=== PATIENT | female | born 1945 | race Caucasian/White ===

== ENCOUNTER 2017-04-22 10:36 | Inpatient (IN) | payer MEDICARE, BC ==
[2017-04-22] MEDS ORDERED: Albuterol/Ipratropium 3.0-0.5 MG/3 ML Neb Soln NEB ONE (11:05)
[2017-04-22] MEDS: Sodium Chloride 0.9% 1,000 ML IV SCH ×4 (11:55→23:08)
[2017-04-22] MEDS ORDERED: LORazepam 1 MG Tab PO PRN (12:00)
[2017-04-22] MEDS ORDERED: Azithromycin 500 MG in Sodium Chloride 0.9% 250 ML IV ONE (12:06)
[2017-04-22] MEDS ORDERED: Sodium Chloride 0.9% 1,000 ML IV SCH (12:15)
[2017-04-22] MEDS ORDERED: Losartan 100 MG Tab PO SCH (13:00)
[2017-04-22] MEDS: Aspirin 81 MG Tab.EC PO SCH (13:13)
[2017-04-22] MEDS: Venlafaxine 37.5 MG Cap.ER PO SCH (13:13)
[2017-04-22] MEDS: Enoxaparin 30 MG/0.3 ML Syringe SUBCUT SCH (13:14)
[2017-04-22] MEDS: Nicotine 14 MG/24 Hr Patch TRDERM SCH (13:15)
--- NOTE | 2017-04-22 13:21 | CR ---
INDICATION: Pneumonia follow-up, COPD, hypoxia. CHEST: AP and lateral views of the chest were obtained 04/22/2017 - no comparisons. Slightly heavy markings are noted at the right costophrenic angle, which may be on the basis of fibrosis or possibly a minimal patchy pneumonia. If old films are available for comparison, they should be of further diagnostic benefit. No consolidating pneumonia or effusion was seen. Flattened diaphragm leaves, hyperaeration, and prominent AP diameter are all compatible with COPD, which appears to be fairly severe - correlate clinically. Calcification is noted in the arch of the aorta. The heart is normal in size and shape. A minimal dextroconvex scoliosis of the thoracic spine is noted. IMPRESSION: 1. No definite acute process, but difficult to exclude a minimal patchy bronchopneumonia at the right costophrenic angle. This could be on the basis of fibrosis and should be correlated clinically. Old films, if available, should be of further diagnostic benefit. Apparently none are available at [place]. 2. COPD. 3. ASD aorta. 4. Mild scoliosis. MTDD
[2017-04-22] MEDS: Albuterol/Ipratropium 3.0-0.5 MG/3 ML Neb Soln NEB PRN ×2 (14:36→20:45)
--- NOTE | 2017-04-22 19:49 | PCM.HP ---
H&P History of Present Illness - General Date of Service: 04/22/17 Admit Problem/Dx: Admission Diagnosis/Problem Admission Diagnosis/Problem COPD with acute lower respiratory infection Source of Information: Patient, Old Records - History of Present Illness Initial Comments - Free Text/Narative: 71-year-old female came in because of cough, shortness of breath and wheezing for 1 week. She is a tobacco abuser and just quit about a week ago. She states that she has a history of COPD. She has hypertension depression anxiety that are stable. Cough was dry nonproductive there is no sugar fever chills [place] chest pain. DENIES ANY PAIN WHEN ASKED AT PRESENT TIME. Pain Score (Numeric/FACES): 0 - Related Data Allergies/Adverse Reactions: Allergies Allergy/AdvReac Type Severity Reaction Status Date / Time clindamycin Allergy Hives Verified 04/22/17 13:17 Penicillins Allergy Hives Verified 04/22/17 13:17 Sulfa (Sulfonamide Allergy Hives Verified 04/22/17 13:17 Antibiotics) Home Medications: Home Meds Aspirin 81 mg PO DAILY 04/22/17 [History] LORazepam 1 mg PO DAILY PRN 04/22/17 [History] Losartan Potassium 100 mg PO DAILY 04/22/17 [History] Venlafaxine HCl [Venlafaxine ER] 37.5 mg PO DAILY 04/22/17 [History] Past Medical History HEENT History: Reports: Impaired Vision Cardiovascular History: Reports: Hypertension Respiratory History: Reports: COPD, SOB [employer] WORK[employer] History: Reports: Psychiatric History: Reports: Anxiety - Infectious Disease History Infectious Disease History: Reports: Chicken Pox, Measles - Past Surgical History Respiratory Surgical History: Reports: None Social & Family History - Family History Family Medical History: Noncontributory - Tobacco Use Smoking Status *Q: Current Every Day Smoker Years of Tobacco use: 30 Packs/Tins Daily: 0 - Caffeine Use Caffeine Use: Reports: Coffee, Energy Drinks, Soda - Recreational Drug Use Recreational Drug Use: No H&P Review of Systems - Review of Systems: Review Of Systems: ROS reveals no pertinent complaints other than HPI. Exam - Exam Exam: See Below - Vital Signs Vital Signs: Last Vital Signs Temp 98.6 F 04/22/17 13:10 Pulse 100 04/22/17 14:53 Resp 26 H 04/22/17 13:10 BP 125/73 02/07/18 13:13 Pulse Ox 93 L 04/22/17 14:53 Weight: 67.784 kg - Exam Quality Assessment: Supplemental Oxygen General: Alert, Oriented, 4 HEENT: PERRLA, Hearing Intact, Mucosa Moist & [place], Nares Patent, Normal Nasal Septum, Posterior Pharynx Clear, Conjunctiva Clear, EOMI, EACs Clear, TMs Clear Neck: Supple, Trachea Midline, 2 Lungs: Normal Respiratory Effort, Decreased Breath Sounds, Rhonchi. No: Rales Cardiovascular: Regular Rate, Regular Rhythm GI/Abdominal Exam: Normal Bowel Sounds, Soft, Non-Tender, No Organomegaly, No Distention, No Abnormal Bruit, No Mass, Pelvis Stable (Female) Exam: Deferred Rectal (Female) Exam: Deferred Back Exam: Normal Inspection, Full Range of Motion, NT Extremities: Normal Inspection, Normal Range of Motion, Non-Tender, No Pedal Edema, Normal Capillary Refill Skin: Warm, Dry, Intact Neurological: Cranial Nerves Intact, Reflexes Equal Bilateral Neuro Extensive - Mental Status: Alert, Oriented x3, Normal Mood/Affect, Normal Cognition Neuro Extensive - Motor, Sensory, Reflexes: CN II-XII Intact, Normal Gait, Normal Reflexes Psychiatric: Alert, Normal Affect, Normal Mood - Patient Data Result Diagrams: 04/22/17 11:28 04/22/17 11:28 *Q Meaningful Use (ADM) - VTE *Q VTE Criteria *Q: - Stroke *Q Stroke Criteria *Q: - AMI *Q AMI Criteria *Q: - Problem List (1) COPD (chronic obstructive pulmonary disease) SNOMED Code(s): 35414566 ICD Code: J44.9 - CHRONIC OBSTRUCTIVE PULMONARY DISEASE, UNSPECIFIED Status : Acute Current Visit: Yes Qualifiers: COPD type: chronic bronchitis (2) HTN (hypertension) SNOMED Code(s): 65618845 ICD Code: I10 - ESSENTIAL (PRIMARY) HYPERTENSION Status: Acute Current Visit: Yes Qualifiers: Hypertension type: essential hypertension Qualified Code(s): I10 - Essential (primary) hypertension (3) Tobacco abuse SNOMED Code(s): 372266042 ICD Code: Z72.0 - TOBACCO USE Status: Chronic Current Visit: Yes (4) Anxiety and depression SNOMED Code(s): 058181229 ICD Code: F41.8 - OTHER SPECIFIED ANXIETY DISORDERS Status: Acute Current Visit: Yes Problem List Initiated/Reviewed/Updated: Yes Orders Last 24hrs: Active Orders 24 hr Category Date Time Status IS (RT) [RT Incentive Spirometry] [RC] ASDIRECTED Care 04/22/17 14:38 Active RT Aerosol Therapy [RC] ASDIRECTED Care 04/22/17 12:05 Active BASIC METABOLIC PANEL,BMP [CHEM] AM Lab 04/23/17 05:11 Ordered CBC WITH AUTO DIFF [HEME] AM Lab 04/23/17 05:11 Ordered PRO B-TYPE NATRIUR PEPT,BNPPRO [CHEM] DAILY Lab 04/23/17 06:11 Ordered Albuterol/Ipratropium [DuoNeb 3.0-0.5 MG/3 ML] Med 04/22/17 12:04 Active 3 ml NEB Q2H PRN Aspirin [Halfprin] Med 04/22/17 13:00 Active 81 mg PO DAILY Azithromycin [Zithromax] 500 mg Med 04/23/17 13:00 Active Sodium Chloride 0.9% [Normal Saline] 250 ml IV Q24H LORazepam [Ativan] Med 04/22/17 12:00 Active 1 mg PO DAILY PRN Losartan [Cozaar] Med 04/22/17 13:00 Active 100 mg PO DAILY Sodium Chloride 0.9% [Normal Saline] 1,000 ml Med 04/22/17 12:15 Active IV ASDIRECTED Venlafaxine [Effexor XR] Med 04/22/17 13:00 Active 37.5 mg PO DAILY methylPREDNISolone Sod Succ [Solu-MEDROL] Med 04/22/17 19:45 Ordered 125 mg IVPUSH Q8H Medication Orders Albuterol/Ipratropium (Duoneb 3.0-0.5 Mg/3 Ml) 3 ml NEB Q2H PRN PRN Reason: Shortness of Breath Last Admin: 04/22/17 14:36 Dose: 3 ml Aspirin (Halfprin) 81 mg PO DAILY [facility] Last Admin: 04/22/17 13:13 Dose: 81 mg Enoxaparin Sodium (Lovenox) 30 mg SUBCUT Q24H [facility] Last Admin: 04/22/17 13:14 Dose: 30 mg Sodium Chloride (Normal Saline) 1,000 mls @ 150 mls/hr IV ASDIRECTED [facility] Last Admin: 04/22/17 16:58 Dose: 150 mls/hr Azithromycin 500 mg/ Sodium (Chloride) 250 mls @ 250 mls/hr IV Q24H [facility] Sodium Chloride (Normal Saline) 1,000 mls @ 999 mls/hr IV ASDIRECTED [facility] Last Infusion: 04/22/17 17:03 Dose: 150 mls/hr Infusion: 04/22/17 12:30 Dose: 150 mls/hr Admin: 04/22/17 11:55 Dose: 999 mls/hr Lorazepam (Ativan) 1 mg PO DAILY PRN PRN Reason: ANXIETY Losartan Potassium (Cozaar) 100 mg PO DAILY [facility] Last Admin: 04/22/17 13:13 Dose: 100 mg Methylprednisolone Sodium Succinate (Solu-Medrol) 125 mg IVPUSH Q8H [facility] Nicotine (Habitrol) 14 mg TRDERM Q24H [facility] Last Admin: 04/22/17 13:15 Dose: 14 mg Venlafaxine HCl (Effexor Xr) 37.5 mg PO DAILY [facility] Last Admin: 04/22/17 13:13 Dose: 37.5 mg Assessment/Plan Comment:: Her chest x-ray is noncontributory. There is some fibrosis perhaps a little infection as well. I agree with the azithromycin, and I will add Solu-Medrol. She is on the Nicotrol patches for smoking cessation and the rest of her home medications have been resumed. I plan to repeat a CBC CMP and BNP in the morning.
[2017-04-22] MEDS: methylPREDNISolone Sodium Succinate 125 MG/2 ML SDV IVPUSH SCH (20:35)
[2017-04-22] MEDS: Melatonin 3 MG Tab PO PRN (20:39)
[2017-04-23] MEDS: methylPREDNISolone Sodium Succinate 125 MG/2 ML SDV IVPUSH SCH ×3 (03:43→19:45)
[2017-04-23] MEDS: Albuterol/Ipratropium 3.0-0.5 MG/3 ML Neb Soln NEB PRN ×4 (07:24→19:45)
--- NOTE | 2017-04-23 09:03 | PCM.PN ---
- General Info Date of Service: 04/23/17 Admission Dx/Problem (Free Text): Admission Diagnosis/Problem Admission Diagnosis/Problem COPD with acute lower respiratory infection Subjective Update: Patient slept well a- received IV fluids overnight ,feels better this morning. Still shortness of breath requiring oxygen supplementation by nasal cannula. Denies any chest pain leg swelling nausea vomiting. No fever has been reported. Functional Status: Reports: Tolerating Diet, Incentive Spirometry - Review of Systems General: Reports: No Symptoms HEENT: Reports: Other (Hoarseness of the voice) Pulmonary: Reports: Shortness of Breath Cardiovascular: Reports: No Symptoms Gastrointestinal: Reports: No Symptoms Genitourinary: Reports: No Symptoms - Patient Data Vitals - Most Recent: Last Vital Signs Temp 98.1 F 04/23/17 07:40 Pulse 88 04/23/17 08:21 Resp 18 04/23/17 07:40 BP 135/74 04/23/17 07:40 Pulse Ox 93 L 04/23/17 08:21 Weight - Most Recent: 67.784 kg I&O - Last 24 Hours: Intake & Output 04/22/17 04/23/17 04/23/17 22:59 06:59 14:59 Intake Total 2199 1447 Balance 2199 1447 Lab Results Last 24 Hours: Laboratory Results - last 24 hr 04/23/17 04/23/17 04/23/17 Range/Units 05:58 05:58 05:58 WBC 1.2 L* (4.5-12.0) X10-3/uL RBC 4.54 (3.23-5.20) x10(6)uL Hgb 13.8 (11.5-15.5) g/dL Hct 40.4 (30.0-51.3) % MCV 89.1 (80-96) fL MCH 30.5 (27.7-33.6) pg MCHC 34.2 (32.2-35.4) g/dL RDW 12.5 (11.5-15.5) % Plt Count 93 L (125-369) X10(3)uL MPV 8.7 (7.4-10.4) fL Add Manual Diff Yes Neutrophils % (Manual) 65 (46-82) % Band Neutrophils % 2 (0-6) % Lymphocytes % (Manual) 27 (13-37) % Monocytes % (Manual) 6 (4-12) % Sodium 139 (135-145) mmol/L Potassium 3.9 (3.5-5.3) mmol/L Chloride 101 D (100-110) mmol/L Carbon Dioxide 30 (21-32) mmol/L BUN 15 D (7-18) mg/dL Creatinine 0.9 (0.55-1.02) mg/dL Est Cr Clr Drug Dosing 50.23 mL/min Estimated GFR (MDRD) > 60 (>60) BUN/Creatinine Ratio 16.7 (9-20) Glucose 210 H D (80-116) mg/dL Calcium 8.3 L (8.6-10.2) mg/dL NT-Pro-B Natriuret Pep 125 (<=125) pg/mL Med Orders - Current: Current Medications Albuterol/Ipratropium (Duoneb 3.0-0.5 Mg/3 Ml) 3 ml NEB Q2H PRN PRN Reason: Shortness of Breath Last Admin: 04/23/17 07:24 Dose: 3 ml Aspirin (Halfprin) 81 mg PO DAILY [facility] Last Admin: 04/22/17 13:13 Dose: 81 mg Enoxaparin Sodium (Lovenox) 30 mg SUBCUT Q24H [facility] Last Admin: 04/22/17 13:14 Dose: 30 mg Azithromycin 500 mg/ Sodium (Chloride) 250 mls @ 250 mls/hr IV Q24H [facility] Lorazepam (Ativan) 1 mg PO DAILY PRN PRN Reason: ANXIETY Losartan Potassium (Cozaar) 100 mg PO DAILY [facility] Last Admin: 04/22/17 13:13 Dose: 100 mg Melatonin (Melatonin) 9 mg PO BEDTIME PRN PRN Reason: Insomnia Last Admin: 04/22/17 20:39 Dose: 9 mg Methylprednisolone Sodium Succinate (Solu-Medrol) 125 mg IVPUSH Q8H [facility] Last Admin: 04/23/17 03:43 Dose: 125 mg Nicotine (Habitrol) 14 mg TRDERM Q24H [facility] Last Admin: 04/22/17 13:15 Dose: 14 mg Venlafaxine HCl (Effexor Xr) 37.5 mg PO DAILY [facility] Last Admin: 04/22/17 13:13 Dose: 37.5 mg Discontinued Medications Albuterol/Ipratropium (Duoneb 3.0-0.5 Mg/3 Ml) 3 ml NEB ONETIME ONE Stop: 04/22/17 11:06 Last Admin: 04/22/17 11:21 Dose: 3 ml Sodium Chloride (Normal Saline) 1,000 mls @ 150 mls/hr IV ASDIRECTED [facility] Last Admin: 04/22/17 23:08 Dose: 150 mls/hr Azithromycin 500 mg/ Sodium (Chloride) 250 mls @ 250 mls/hr IV ONETIME ONE Stop: 04/22/17 13:05 Last Admin: 04/22/17 12:36 Dose: 250 mls/hr Sodium Chloride (Normal Saline) 1,000 mls @ 999 mls/hr IV ASDIRECTED [facility] Last Infusion: 04/22/17 17:03 Dose: Infused - Exam Quality Assessment: Supplemental Oxygen General: Alert, Oriented HEENT: Pupils Equal Neck: Supple Lungs: Clear to Auscultation, Decreased Breath Sounds, Rhonchi, Wheezing Cardiovascular: Regular Rate, Regular Rhythm Psy/Mental Status: Alert, Normal Affect, Normal Mood - Problem List & Annotations (1) COPD (chronic obstructive pulmonary disease) SNOMED Code(s): 02290366 Code(s): J44.9 - CHRONIC OBSTRUCTIVE PULMONARY DISEASE, UNSPECIFIED Status : Acute Current Visit: Yes Qualifiers: COPD type: chronic bronchitis (2) HTN (hypertension) SNOMED Code(s): 85277435 Code(s): I10 - ESSENTIAL (PRIMARY) HYPERTENSION Status: Acute Current Visit: Yes Qualifiers: Hypertension type: essential hypertension Qualified Code(s): I10 - Essential (primary) hypertension (3) Tobacco abuse SNOMED Code(s): 621390376 Code(s): Z72.0 - TOBACCO USE Status: Chronic Current Visit: Yes (4) Anxiety and depression SNOMED Code(s): 313202253 Code(s): F41.8 - OTHER SPECIFIED ANXIETY DISORDERS Status: Chronic Current Visit: Yes (5) Leukopenia SNOMED Code(s): 34840948 Code(s): D72.819 - DECREASED WHITE BLOOD CELL COUNT, UNSPECIFIED Status: Acute Current Visit: Yes Qualifiers: Leukopenia type: neutropenia (6) H/O retinal vein occlusion SNOMED Code(s): 553014358 Code(s): Z86.79 - PERSONAL HISTORY OF OTHER DISEASES OF THE CIRCULATORY SYSTEM Status: Chronic Current Visit: Yes - Problem List Review Problem List Initiated/Reviewed/Updated: Yes - My Orders Last 24 Hours: My Active Orders 04/22/17 14:38 IS (RT) [RT Incentive Spirometry] [RC] ASDIRECTED 04/22/17 20:00 methylPREDNISolone Sod Succ [Solu-MEDROL] 125 mg IVPUSH Q8H 04/22/17 20:02 Melatonin 9 mg PO BEDTIME PRN - Plan Plan:: I will Hep-Lock IV today, will encourage oral fluids. I will obtain a CT of the chest because of persistent hypoxia that is relatively new. Despite possible COPD I wish to rule out pneumonia, PE (especially in light of a previous retinal vein thrombosis),or malignancy. Her leukopenia is likely due to viral infection that started this illness about a week ago with hoarseness to voice, coryza ,sore throat and cough. We'll continue the azithromycin for now,with SVN' s and Solumedrol. I will repeat CBC CMP and troponin in the morning.BC are pending. I will change her status to inpatient care because of continued need for oxygen supplementation
[2017-04-23] MEDS ORDERED: Iopamidol 755 Mg/ML 75 ML Bottle IV ONE (09:41)
[2017-04-23] MEDS: Hydrochlorothiazide/Losartan 12.5-100 mg Tab PO SCH (10:11)
[2017-04-23] MEDS: Aspirin 81 MG Tab.EC PO SCH (10:11)
[2017-04-23] MEDS: Venlafaxine 37.5 MG Cap.ER PO SCH (10:11)
[2017-04-23] MEDS: Nicotine 14 MG/24 Hr Patch TRDERM SCH (12:56)
[2017-04-23] MEDS: Enoxaparin 30 MG/0.3 ML Syringe SUBCUT SCH (12:58)
[2017-04-23] MEDS ORDERED: Azithromycin 500 MG in Sodium Chloride 0.9% 250 ML IV SCH (13:00)
[2017-04-23] MEDS: Azithromycin 500 MG in Sodium Chloride 0.9% 250 ML IV SCH (13:22)
--- NOTE | 2017-04-23 13:22 | CT ---
INDICATION: Hypoxia, question community acquired pneumonia, PE, malignancy. CT CHEST WITH CONTRAST: Spiral 1.25-mm axial sections were obtained through the chest with 70 mL Isovue-370 at 2.8 mL per second, with sagittal and coronal reconstructions, 04/23/2017. No comparison study was available. Total Exam DLP = 458.78 mGy-cm. There is minimal infiltrate and/or atelectasis at both lower lobes. Fibrotic changes may be present also in these areas. No definite active infiltrate or effusion was seen, but it is difficult to entirely exclude at the posterior lung bases, especially on the left. However, no definite consolidating pneumonia or effusion was identified. No definite nodular masses were identified. The heart did not appear enlarged. Mild mediastinal lymphadenopathy is noted, with the maximum diameter of a lymph node in the aortopulmonary window of 12 mm. This is not specific and may be post infectious, but should be correlated clinically. Calcifications are noted in the aorta at the arch and descending portion proximally. The pulmonary arteries were well visualized without evidence of pulmonary emboli. Calcification is noted at the splenic artery, the abdominal aorta, and right renal artery. The upper abdomen is otherwise grossly normal. IMPRESSION: 1. No evidence of pulmonary embolus. 2. No definite acute abnormality identified. However, there are some parenchymal changes mostly subpleural at the lung bases bilaterally, which most likely are fibrotic in nature, but could represent atelectasis and possibly even minimal patchy pneumonia. This should be correlated clinically. 3. No finding to strongly suggest malignancy is identified. 4. Mild mediastinal lymphadenopathy is nonspecific. 5. ASD. Report faxed to Dr. Hutchins on 04/23/2017 at 1325 hours. [facility]
[2017-04-23] MEDS: Sodium Chloride 0.9% 10 ML Syringe FLUSH PRN ×2 (16:03→19:46)
[2017-04-23] MEDS: Melatonin 3 MG Tab PO PRN (21:15)
--- NOTE | 2017-04-24 00:30 | ER ---
DATE SEEN: 04/22/2017 ADDENDUM: The patient has thrombocytopenia, platelet count 110,000, hyponatremia, hypochloremia. Not taking diuretics. Perhaps, she is on a salt- restricted diet and has chronic kidney disease, stage 3, with normal lactate. Further lactate will not be repeated. Troponin is negative. No evidence for myocardial infarction. /[id number] SIM/AUBRIE
[2017-04-24] MEDS: Albuterol/Ipratropium 3.0-0.5 MG/3 ML Neb Soln NEB PRN ×3 (01:43→12:59)
[2017-04-24] MEDS: methylPREDNISolone Sodium Succinate 125 MG/2 ML SDV IVPUSH SCH ×2 (04:54→13:31)
[2017-04-24] MEDS: Sodium Chloride 0.9% 10 ML Syringe FLUSH PRN ×2 (07:41→13:35)
[2017-04-24] MEDS: Aspirin 81 MG Tab.EC PO SCH (08:10)
[2017-04-24] MEDS: Venlafaxine 37.5 MG Cap.ER PO SCH (08:10)
[2017-04-24] MEDS: Hydrochlorothiazide/Losartan 12.5-100 mg Tab PO SCH ×2 (08:10→12:22)
--- NOTE | 2017-04-24 10:47 | ER ---
DATE SEEN: 04/22/2017 HISTORY OF PRESENT ILLNESS: This is a 71-year-old woman who is a [id number]- year smoker, half a pack a day, for 40 years plus and still smoking, comes in with a 7-day history of head cold and 3 days of muscle aches. No nausea, vomiting, or diarrhea. The cough has been for at least 3 days too. Now early on has laryngitis with shortness of breath, and cough has been reproductive. She has no shots history. PAST SURGICAL HISTORY: No previous surgeries. ALLERGIES: She has allergies to clindamycin, penicillin, and sulfa. MEDICATIONS: 1. Venlafaxine. 2. Losartan. 3. Lorazepam. 4. Aspirin. 5. Depression and anxiety. SOCIAL HISTORY: She is a . REVIEW OF SYSTEMS: She notes no symptoms, except for shortness of breath, coughing, dyspnea on exertion. CHEST: Denies chest pain. GI: Denies abdominal discomfort, nausea, vomiting, diarrhea, or constipation. : Denies frequency, urgency, dysuria, or urine loss. MUSCULOSKELETAL: Denies musculoskeletal aches or pains, but she has decreased muscle strength because of the virus. Denies headache, neck stiffness, compromised vision, neuro changes, or seizures. PHYSICAL EXAMINATION: VITAL SIGNS: Temperature 97.8, 101 heart rate, respirations 15, and blood pressure 150/74. 87% oxygen saturation on room air, and with 2 L, it goes up to 91%. GENERAL: Looks tired. She is an asthenic woman who has accessory muscle of breathing, tracheal tug is moderate, and also sternocleidomastoid accessory muscle use. She is mildly asthenic. HEENT: PERRLA intact. Pharynx without abnormality. Mucosa dry. NECK: Supple. No thyromegaly. No masses in neck. No cervical adenopathy or bruits. LUNGS: Decreased air exchange. There are few rales at the bases, more notable. Decreased air exchange in the lungs. No accessory muscle use. HEART: S1, S2. No irregular rate and rhythm. ABDOMEN: Soft. No guarding. No abdominal discomfort. Decreased subcutaneous fat. No hepatosplenomegaly. EXTREMITIES: Lower extremities without edema. Deep tendon reflexes not performed. NEUROLOGIC: Cranial nerves 2 through 12 intact. Oriented x3. Gait not tested. No pass pointing. No dysmetria. No pronator drift. No facial asymmetry. IMAGING: Chest x-ray reveals hyperaeration with flattening of the diaphragms and hilar fibrosis and/or infiltrate. No cardiomegaly. No tracheal deviation. ASSESSMENT: 1. Chronic obstructive pulmonary disease with exacerbation. 2. Influenza test pending and CBC, CMP, and other tests pending. The results are not back, see chart for these lab results. The patient will be admitted for observation because of hypoxia. She has respiratory acidosis with compensation of respiratory alkalosis. 3. Muscle wasting loss secondary to increased work of breathing. Accessory muscle use. 4. Risk for cancer. 5. Moderate air hunger secondary to hypoxia with chronic lung disease. PLAN: The patient admitted, placed on azithromycin. Patient status called to Dr. Hutchins, not available, but the patient will be admitted and orders written for the patient. The patient was seen early on admission to the ED. DIAGNOSES: 1. Chronic obstructive pulmonary disease with exacerbation. 2. Chronic smoking abuse, 20+ pack years. 3. Moderate asthenia. 4. Hypoxia with compensatory respiratory alkalosis. /[id number] SIM/AUBRIE
--- NOTE | 2017-04-24 11:48 | PCM.PN ---
- General Info Date of Service: 04/24/17 Admission Dx/Problem (Free Text): Patient states she still has just a little bit shortness of breath but it's improved. Less wheezing. She still requires the oxygen. She denies fevers, chills, sore throat, nasal congestion. She says she has a cough that's dry and nonproductive when she has a breathing treatment. Overall she states she is doing better. - Patient Data Vitals - Most Recent: Last Vital Signs Temp 98.0 F 04/24/17 07:38 Pulse 120 H 04/24/17 09:26 Resp 18 04/24/17 07:38 BP 141/86 H 04/24/17 07:38 Pulse Ox 90 L 04/24/17 09:21 Weight - Most Recent: 149 lb 7 oz I&O - Last 24 Hours: Intake & Output 04/23/17 04/24/17 04/24/17 22:59 06:59 14:59 Intake Total 1050 1250 Output Total 0 1550 Balance 1050 -300 Lab Results Last 24 Hours: Laboratory Results - last 24 hr 04/24/17 04/24/17 04/24/17 Range/Units 06:40 06:40 06:40 WBC 8.0 (4.5-12.0) X10-3/uL RBC 4.22 (3.23-5.20) x10(6)uL Hgb 13.0 (11.5-15.5) g/dL Hct 37.4 (30.0-51.3) % MCV 88.6 (80-96) fL MCH 30.9 (27.7-33.6) pg MCHC 34.9 (32.2-35.4) g/dL RDW 12.2 (11.5-15.5) % Plt Count 131 (125-369) X10(3)uL MPV 8.0 (7.4-10.4) fL Add Manual Diff Yes Neutrophils % (Manual) 80 (46-82) % Band Neutrophils % 1 (0-6) % Lymphocytes % (Manual) 14 (13-37) % Monocytes % (Manual) 5 (4-12) % Sodium 138 (135-145) mmol/L Potassium 3.0 L (3.5-5.3) mmol/L Chloride 99 L (100-110) mmol/L Carbon Dioxide 35 H (21-32) mmol/L BUN 13 (7-18) mg/dL Creatinine 0.7 (0.55-1.02) mg/dL Est Cr Clr Drug Dosing 64.58 mL/min Estimated GFR (MDRD) > 60 (>60) BUN/Creatinine Ratio 18.6 (9-20) Glucose 161 H (80-116) mg/dL Calcium 8.8 (8.6-10.2) mg/dL Troponin I < 0.017 L (<0.017-0.056) ng/mL Med Orders - Current: Current Medications Albuterol/Ipratropium (Duoneb 3.0-0.5 Mg/3 Ml) 3 ml NEB Q2H PRN PRN Reason: Shortness of Breath Last Admin: 04/24/17 09:19 Dose: 3 ml Aspirin (Halfprin) 81 mg PO DAILY [facility] Last Admin: 04/24/17 08:10 Dose: 81 mg Enoxaparin Sodium (Lovenox) 30 mg SUBCUT Q24H [facility] Last Admin: 04/23/17 12:58 Dose: 30 mg HCTZ/Losartan Potassium (Hyzaar 100-12.5 Mg) 1 tab PO DAILY [facility] Azithromycin 500 mg/ Sodium (Chloride) 250 mls @ 250 mls/hr IV Q24H [facility] Last Admin: 04/23/17 13:22 Dose: 250 mls/hr Lorazepam (Ativan) 1 mg PO DAILY PRN PRN Reason: ANXIETY Last Admin: 04/24/17 01:42 Dose: 1 mg Melatonin (Melatonin) 9 mg PO BEDTIME PRN PRN Reason: Insomnia Last Admin: 04/23/17 21:15 Dose: 9 mg Methylprednisolone Sodium Succinate (Solu-Medrol) 125 mg IVPUSH Q12H [facility] Nicotine (Habitrol) 14 mg TRDERM Q24H [facility] Last Admin: 04/23/17 12:56 Dose: 14 mg Sodium Chloride (Saline Flush) 10 ml FLUSH ASDIRECTED PRN PRN Reason: Keep Vein Open Last Admin: 04/24/17 07:41 Dose: 10 ml Venlafaxine HCl (Effexor Xr) 37.5 mg PO DAILY [facility] Last Admin: 04/24/17 08:10 Dose: 37.5 mg Discontinued Medications Albuterol/Ipratropium (Duoneb 3.0-0.5 Mg/3 Ml) 3 ml NEB ONETIME ONE Stop: 04/22/17 11:06 Last Admin: 04/22/17 11:21 Dose: 3 ml HCTZ/Losartan Potassium (Hyzaar 100-12.5 Mg) 1 tab PO DAILY [facility] Last Admin: 04/24/17 08:10 Dose: 1 tab Sodium Chloride (Normal Saline) 1,000 mls @ 150 mls/hr IV ASDIRECTED [facility] Last Admin: 04/22/17 23:08 Dose: 150 mls/hr Azithromycin 500 mg/ Sodium (Chloride) 250 mls @ 250 mls/hr IV Q24H [facility] Azithromycin 500 mg/ Sodium (Chloride) 250 mls @ 250 mls/hr IV ONETIME ONE Stop: 04/22/17 13:05 Last Admin: 04/22/17 12:36 Dose: 250 mls/hr Sodium Chloride (Normal Saline) 1,000 mls @ 999 mls/hr IV ASDIRECTED [facility] Last Infusion: 04/22/17 17:03 Dose: Infused Iopamidol (Isovue-370 (76%)) 75 ml IV ONETIME ONE Stop: 04/23/17 09:42 Last Admin: 04/23/17 09:57 Dose: 70 ml Losartan Potassium (Cozaar) 100 mg PO DAILY [facility] Last Admin: 04/22/17 13:13 Dose: 100 mg Methylprednisolone Sodium Succinate (Solu-Medrol) 125 mg IVPUSH Q8H [facility] Last Admin: 04/24/17 04:54 Dose: 125 mg - Exam Quality Assessment: Supplemental Oxygen General: Alert, Oriented, Cooperative Neck: Supple Lungs: Clear to Auscultation, Normal Respiratory Effort, Decreased Breath Sounds. No: Crackles, Rales, Rhonchi, Wheezing Cardiovascular: Regular Rate, Regular Rhythm, No Murmurs Extremities: No Pedal Edema - Problem List & Annotations (1) Influenza SNOMED Code(s): 0052421 Code(s): J11.1 - FLU DUE TO UNIDENTIFIED INFLUENZA VIRUS W OTH RESP MANIFEST Status: Acute Current Visit: Yes (2) COPD (chronic obstructive pulmonary disease) SNOMED Code(s): 99582178 Code(s): J44.9 - CHRONIC OBSTRUCTIVE PULMONARY DISEASE, UNSPECIFIED Status : Acute Current Visit: Yes Qualifiers: COPD type: chronic bronchitis (3) Anxiety and depression SNOMED Code(s): 952812282 Code(s): F41.8 - OTHER SPECIFIED ANXIETY DISORDERS Status: Chronic Current Visit: Yes (4) Tobacco abuse SNOMED Code(s): 874936172 Code(s): Z72.0 - TOBACCO USE Status: Chronic Current Visit: Yes (5) Palliative care status SNOMED Code(s): 544273321 Code(s): Z51.5 - ENCOUNTER FOR PALLIATIVE CARE Status: Acute Current Visit: Yes (6) Hypokalemia SNOMED Code(s): 36552040 Code(s): E87.6 - HYPOKALEMIA Status: Acute Current Visit: Yes - Problem List Review Problem List Initiated/Reviewed/Updated: Yes - My Orders Last 24 Hours: My Active Orders 04/24/17 09:48 Consult to Occupational Therapy [OT Evaluation and Treatment] [CONS] Routine Consult to Physical Therapy [PT Evaluation and Treatment] [CONS] Routine 04/24/17 11:45 Hydrochlorothiazide/Losartan [Hyzaar 100-12.5 MG] 1 tab PO DAILY methylPREDNISolone Sod Succ [Solu-MEDROL] 125 mg IVPUSH Q12H 04/24/17 21:00 Potassium Chloride [Klor-Con M20] 20 meq PO BID 04/25/17 06:00 BASIC METABOLIC PANEL,BMP [CHEM] AM - Plan Plan:: 1. PT/OT. 2. Ambulate frequently. 3. Slowly wean O2 as tolerated. 4. Solu-Medrol 125 mg every 12 hours. 5. With the patient's symptoms I think she has influenza that exacerbate her COPD even though the influenza swab was negative. There are lots of inaccuracies with the swab. 6. Potassium chloride 20 mg twice a day. BMP in a.m.
[2017-04-24] MEDS: Enoxaparin 30 MG/0.3 ML Syringe SUBCUT SCH (12:22)
[2017-04-24] MEDS: Nicotine 14 MG/24 Hr Patch TRDERM SCH (12:22)
[2017-04-24] MEDS: Azithromycin 500 MG in Sodium Chloride 0.9% 250 ML IV SCH (13:43)
[2017-04-24] MEDS: Potassium Chloride 20 MEQ Tab.ER PO SCH (20:25)
[2017-04-25] MEDS: methylPREDNISolone Sodium Succinate 125 MG/2 ML SDV IVPUSH SCH (00:29)
[2017-04-25] MEDS: Sodium Chloride 0.9% 10 ML Syringe FLUSH PRN ×2 (00:31→07:42)
[2017-04-25] MEDS: Potassium Chloride 20 MEQ Tab.ER PO SCH ×3 (08:07→21:25)
[2017-04-25] MEDS: Aspirin 81 MG Tab.EC PO SCH (08:07)
[2017-04-25] MEDS: Venlafaxine 37.5 MG Cap.ER PO SCH (08:07)
[2017-04-25] MEDS: Hydrochlorothiazide/Losartan 12.5-100 mg Tab PO SCH (08:07)
[2017-04-25] MEDS: Albuterol/Ipratropium 3.0-0.5 MG/3 ML Neb Soln NEB PRN ×2 (08:48→13:52)
[2017-04-25] MEDS: Azithromycin 250 MG Tab PO SCH (10:49)
[2017-04-25] MEDS: predniSONE 20 MG Tab PO SCH (10:49)
[2017-04-25] MEDS: Enoxaparin 30 MG/0.3 ML Syringe SUBCUT SCH (13:44)
[2017-04-25] MEDS: Nicotine 14 MG/24 Hr Patch TRDERM SCH (13:48)
[2017-04-26] MEDS: Albuterol/Ipratropium 3.0-0.5 MG/3 ML Neb Soln NEB PRN (08:29)
--- NOTE | 2017-04-26 09:40 | PCM.PN ---
- General Info Date of Service: 04/26/17 Admission Dx/Problem (Free Text): Patient states she's all tired because she didn't sleep last night. She denies any shortness of breath. Cough is looser and makes her happy. No chest pain, fevers or chills. - Patient Data Vitals - Most Recent: Last Vital Signs Temp 99.1 F 04/26/17 08:00 Pulse 108 H 04/26/17 08:29 Resp 16 04/26/17 08:00 BP 137/75 04/26/17 08:00 Pulse Ox 91 L 04/26/17 08:29 Weight - Most Recent: 149 lb 7 oz I&O - Last 24 Hours: Intake & Output 04/25/17 04/26/17 04/26/17 22:59 06:59 14:59 Output Total 600 800 Balance -600 -800 Lab Results Last 24 Hours: Laboratory Results - last 24 hr 04/26/17 Range/Units 06:22 Sodium 141 (135-145) mmol/L Potassium 3.1 L (3.5-5.3) mmol/L Chloride 100 (100-110) mmol/L Carbon Dioxide 38 H (21-32) mmol/L BUN 17 (7-18) mg/dL Creatinine 0.8 (0.55-1.02) mg/dL Est Cr Clr Drug Dosing 56.50 mL/min Estimated GFR (MDRD) > 60 (>60) BUN/Creatinine Ratio 21.3 H (9-20) Glucose 78 L (80-116) mg/dL Calcium 8.7 (8.6-10.2) mg/dL Med Orders - Current: Current Medications Albuterol/Ipratropium (Duoneb 3.0-0.5 Mg/3 Ml) 3 ml NEB Q2H PRN PRN Reason: Shortness of Breath Last Admin: 04/26/17 08:29 Dose: 3 ml Aspirin (Halfprin) 81 mg PO DAILY [facility] Last Admin: 04/25/17 08:07 Dose: 81 mg Azithromycin (Zithromax) 250 mg PO DAILY [facility] Last Admin: 04/25/17 10:49 Dose: 250 mg Enoxaparin Sodium (Lovenox) 30 mg SUBCUT Q24H [facility] Last Admin: 04/25/17 13:44 Dose: 30 mg HCTZ/Losartan Potassium (Hyzaar 100-12.5 Mg) 1 tab PO DAILY [facility] Last Admin: 04/25/17 08:07 Dose: 1 tab Lorazepam (Ativan) 1 mg PO DAILY PRN PRN Reason: ANXIETY Last Admin: 04/24/17 01:42 Dose: 1 mg Melatonin (Melatonin) 9 mg PO BEDTIME PRN PRN Reason: Insomnia Last Admin: 04/23/17 21:15 Dose: 9 mg Nicotine (Habitrol) 14 mg TRDERM Q24H [facility] Last Admin: 04/25/17 13:48 Dose: 14 mg Potassium Chloride (Klor-Con M20) 20 meq PO TID [facility] Last Admin: 04/25/17 21:25 Dose: 20 meq Prednisone (Prednisone) 60 mg PO DAILY [facility] Last Admin: 04/25/17 10:49 Dose: 60 mg Sodium Chloride (Saline Flush) 10 ml FLUSH ASDIRECTED PRN PRN Reason: Keep Vein Open Last Admin: 04/25/17 07:42 Dose: 10 ml Venlafaxine HCl (Effexor Xr) 37.5 mg PO DAILY [facility] Last Admin: 04/25/17 08:07 Dose: 37.5 mg Discontinued Medications Albuterol/Ipratropium (Duoneb 3.0-0.5 Mg/3 Ml) 3 ml NEB ONETIME ONE Stop: 04/22/17 11:06 Last Admin: 04/22/17 11:21 Dose: 3 ml HCTZ/Losartan Potassium (Hyzaar 100-12.5 Mg) 1 tab PO DAILY [facility] Last Admin: 04/24/17 08:10 Dose: 1 tab Sodium Chloride (Normal Saline) 1,000 mls @ 150 mls/hr IV ASDIRECTED [facility] Last Admin: 04/22/17 23:08 Dose: 150 mls/hr Azithromycin 500 mg/ Sodium (Chloride) 250 mls @ 250 mls/hr IV Q24H [facility] Azithromycin 500 mg/ Sodium (Chloride) 250 mls @ 250 mls/hr IV ONETIME ONE Stop: 04/22/17 13:05 Last Admin: 04/22/17 12:36 Dose: 250 mls/hr Sodium Chloride (Normal Saline) 1,000 mls @ 999 mls/hr IV ASDIRECTED [facility] Last Infusion: 04/22/17 17:03 Dose: Infused Azithromycin 500 mg/ Sodium (Chloride) 250 mls @ 250 mls/hr IV Q24H [facility] Last Admin: 04/24/17 13:43 Dose: 250 mls/hr Iopamidol (Isovue-370 (76%)) 75 ml IV ONETIME ONE Stop: 04/23/17 09:42 Last Admin: 04/23/17 09:57 Dose: 70 ml Losartan Potassium (Cozaar) 100 mg PO DAILY [facility] Last Admin: 04/22/17 13:13 Dose: 100 mg Methylprednisolone Sodium Succinate (Solu-Medrol) 125 mg IVPUSH Q8H [facility] Last Admin: 04/24/17 04:54 Dose: 125 mg Methylprednisolone Sodium Succinate (Solu-Medrol) 125 mg IVPUSH Q12H [facility] Last Admin: 04/25/17 00:29 Dose: 125 mg Potassium Chloride (Klor-Con M20) 20 meq PO BID [facility] Last Admin: 04/25/17 08:07 Dose: 20 meq - Exam General: Alert, Oriented, Cooperative Lungs: Clear to Auscultation, Decreased Breath Sounds. No: Crackles, Rales, Rhonchi Cardiovascular: Regular Rate, Regular Rhythm, No Murmurs Extremities: No Pedal Edema - Problem List & Annotations (1) Influenza SNOMED Code(s): 9293941 Code(s): J11.1 - FLU DUE TO UNIDENTIFIED INFLUENZA VIRUS W OTH RESP MANIFEST Status: Acute Current Visit: Yes (2) COPD (chronic obstructive pulmonary disease) SNOMED Code(s): 47108711 Code(s): J44.9 - CHRONIC OBSTRUCTIVE PULMONARY DISEASE, UNSPECIFIED Status : Acute Current Visit: Yes Qualifiers: COPD type: chronic bronchitis (3) Anxiety and depression SNOMED Code(s): 131959605 Code(s): F41.8 - OTHER SPECIFIED ANXIETY DISORDERS Status: Chronic Current Visit: Yes (4) Tobacco abuse SNOMED Code(s): 184580024 Code(s): Z72.0 - TOBACCO USE Status: Chronic Current Visit: Yes (5) Palliative care status SNOMED Code(s): 276337621 Code(s): Z51.5 - ENCOUNTER FOR PALLIATIVE CARE Status: Acute Current Visit: Yes (6) Hypokalemia SNOMED Code(s): 95341305 Code(s): E87.6 - HYPOKALEMIA Status: Acute Current Visit: Yes - Problem List Review Problem List Initiated/Reviewed/Updated: Yes - My Orders Last 24 Hours: My Active Orders 04/25/17 09:00 predniSONE 60 mg PO DAILY 04/25/17 09:30 Azithromycin [Zithromax] 250 mg PO DAILY 04/25/17 14:00 Potassium Chloride [Klor-Con M20] 20 meq PO TID - Plan Plan:: 1. She was able to maintain O2 sat greater than 91% sitting by her bed. When she went for a long walk and went to 84%. And will discharge her home and tell her not to do any heavy exertion. She seems to be better every day. She'll recheck in one week with her doctor and then recheck her O2 sat at that time.
--- NOTE | 2017-04-26 09:58 | PCM.DCSUM1 ---
Discharge Summary - Hospital Course Free Text/Narrative:: Hospital course-. Patient was admitted put on Solu-Medrol, O2,'s Zithromax IV. Influenza test was negative. But she had all the signs influenza. Her potassium was low and she was put on potassium twice a day and then 3 times a day in a slightly low from 3.0-3.1. Everyday the patient improved with her oxygenation and we briefly taper off the Solu-Medrol down to prednisone 60 mg a day. Patient 's oxygen improved to the point where when she cemented bedside her oxygen saturation was 91% on room air. When she walks long distance it dropped 84%. She was on a smoking patch and smoking cessation was discussed with her. She is on the patch and that's helping her. She will continue that. Discharge her home on no oxygen. I told her to not exert herself. She'll recheck in a week and check her oxygen saturation. By that time should be saturating fine even walking. Brief History: 71-year-old female came in because of cough, shortness of breath and wheezing for 1 week. She is a tobacco abuser and just quit about a week ago. She states that she has a history of COPD. She has hypertension depression anxiety that are stable. Cough was dry nonproductive there is no sugar fever chills [place] chest pain. - Discharge Data Discharge Date: 04/26/17 Discharge Disposition: Home, Self-Care 01 Condition: Good - Discharge Diagnosis/Problem(s) (1) Influenza SNOMED Code(s): 5760935 ICD Code: J11.1 - FLU DUE TO UNIDENTIFIED INFLUENZA VIRUS W OTH RESP MANIFEST Status: Acute Current Visit: Yes (2) COPD (chronic obstructive pulmonary disease) SNOMED Code(s): 48309103 ICD Code: J44.9 - CHRONIC OBSTRUCTIVE PULMONARY DISEASE, UNSPECIFIED Status : Acute Current Visit: Yes Qualifiers: COPD type: chronic bronchitis (3) Anxiety and depression SNOMED Code(s): 222250780 ICD Code: F41.8 - OTHER SPECIFIED ANXIETY DISORDERS Status: Chronic Current Visit: Yes (4) Tobacco abuse SNOMED Code(s): 558345776 ICD Code: Z72.0 - TOBACCO USE Status: Chronic Current Visit: Yes (5) Palliative care status SNOMED Code(s): 193931591 ICD Code: Z51.5 - ENCOUNTER FOR PALLIATIVE CARE Status: Acute Current Visit: Yes (6) Hypokalemia SNOMED Code(s): 78893158 ICD Code: E87.6 - HYPOKALEMIA Status: Acute Current Visit: Yes - Patient Summary/Data Consults: Consultations 04/24/17 09:48 Consult to Occupational Therapy [OT Evaluation and Treatment] [CONS] Routine Please Evaluate and Treat. OT Reason for Consult: Strengthening This query below is only for informational purposes and is not editable. Admission Diagnosis/Problem: COPD with acute lower respiratory infection Consult to Physical Therapy [PT Evaluation and Treatment] [CONS] Routine Please Evaluate and Treat. PT Reason for Consult: Strengthening This query below is only for informational purposes and is not editable. Admission Diagnosis/Problem: COPD with acute lower respiratory infection - Patient Instructions Diet: Regular Diet as Tolerated Activity: As Tolerated Driving: May Drive Today Showering/Bathing: May Shower Notify Provider of: Fever, Increased Pain Other/Special Instructions: 1. Recheck with Dr. Rodriguez 1 week with a potassium before the appointment. 2. O2 saturations with walking at the clinic. - Discharge Plan Prescriptions/Med Rec: Azithromycin [Zithromax] 250 mg PO DAILY #3 tablet Potassium Chloride [Klor-Con M20] 20 meq PO BID #14 tab.er Home Medications: Home Meds Aspirin 81 mg PO DAILY 04/22/17 [History] LORazepam 1 mg PO DAILY PRN 04/22/17 [History] Venlafaxine HCl [Venlafaxine ER] 37.5 mg PO DAILY 04/22/17 [History] Losartan/Hydrochlorothiazide [Losartan-HCTZ 100-12.5 MG] 1 tab PO DAILY [History] Azithromycin [Zithromax] 250 mg PO DAILY #3 tablet 04/26/17 [Rx] Potassium Chloride [Klor-Con M20] 20 meq PO BID #14 tab.er 04/26/17 [Rx] Patient Handouts: Smoking Cessation, Tips for Success, [id number], Chronic Obstructive Pulmonary Disease, [id number], Fall Prevention in Hospitals, Adult , Venous Thromboembolism Prevention Forms: ED Department Discharge Referrals: Henry Ashby MD [Primary Care Provider] - - Patient Data Vitals - Most Recent: Last Vital Signs Temp 99.1 F 04/26/17 08:00 Pulse 108 H 04/26/17 08:29 Resp 16 04/26/17 08:00 BP 137/75 04/26/17 08:00 Pulse Ox 91 L 04/26/17 08:29 Weight - Most Recent: 149 lb 7 oz I&O - Last 24 hours: Intake & Output 04/25/17 04/26/17 04/26/17 22:59 06:59 14:59 Output Total 600 800 Balance -600 -800 Lab Results - Last 24 hrs: Laboratory Results - last 24 hr 04/26/17 Range/Units 06:22 Sodium 141 (135-145) mmol/L Potassium 3.1 L (3.5-5.3) mmol/L Chloride 100 (100-110) mmol/L Carbon Dioxide 38 H (21-32) mmol/L BUN 17 (7-18) mg/dL Creatinine 0.8 (0.55-1.02) mg/dL Est Cr Clr Drug Dosing 56.50 mL/min Estimated GFR (MDRD) > 60 (>60) BUN/Creatinine Ratio 21.3 H (9-20) Glucose 78 L (80-116) mg/dL Calcium 8.7 (8.6-10.2) mg/dL Med Orders - Current: Current Medications Albuterol/Ipratropium (Duoneb 3.0-0.5 Mg/3 Ml) 3 ml NEB Q2H PRN PRN Reason: Shortness of Breath Last Admin: 04/26/17 08:29 Dose: 3 ml Aspirin (Halfprin) 81 mg PO DAILY [facility] Last Admin: 04/25/17 08:07 Dose: 81 mg Azithromycin (Zithromax) 250 mg PO DAILY [facility] Last Admin: 04/25/17 10:49 Dose: 250 mg Enoxaparin Sodium (Lovenox) 30 mg SUBCUT Q24H [facility] Last Admin: 04/25/17 13:44 Dose: 30 mg HCTZ/Losartan Potassium (Hyzaar 100-12.5 Mg) 1 tab PO DAILY [facility] Last Admin: 04/25/17 08:07 Dose: 1 tab Lorazepam (Ativan) 1 mg PO DAILY PRN PRN Reason: ANXIETY Last Admin: 04/24/17 01:42 Dose: 1 mg Melatonin (Melatonin) 9 mg PO BEDTIME PRN PRN Reason: Insomnia Last Admin: 04/23/17 21:15 Dose: 9 mg Nicotine (Habitrol) 14 mg TRDERM Q24H [facility] Last Admin: 04/25/17 13:48 Dose: 14 mg Potassium Chloride (Klor-Con M20) 20 meq PO TID [facility] Last Admin: 04/25/17 21:25 Dose: 20 meq Prednisone (Prednisone) 60 mg PO DAILY [facility] Last Admin: 04/25/17 10:49 Dose: 60 mg Sodium Chloride (Saline Flush) 10 ml FLUSH ASDIRECTED PRN PRN Reason: Keep Vein Open Last Admin: 04/25/17 07:42 Dose: 10 ml Venlafaxine HCl (Effexor Xr) 37.5 mg PO DAILY [facility] Last Admin: 04/25/17 08:07 Dose: 37.5 mg Discontinued Medications Albuterol/Ipratropium (Duoneb 3.0-0.5 Mg/3 Ml) 3 ml NEB ONETIME ONE Stop: 04/22/17 11:06 Last Admin: 04/22/17 11:21 Dose: 3 ml HCTZ/Losartan Potassium (Hyzaar 100-12.5 Mg) 1 tab PO DAILY [facility] Last Admin: 04/24/17 08:10 Dose: 1 tab Sodium Chloride (Normal Saline) 1,000 mls @ 150 mls/hr IV ASDIRECTED [facility] Last Admin: 04/22/17 23:08 Dose: 150 mls/hr Azithromycin 500 mg/ Sodium (Chloride) 250 mls @ 250 mls/hr IV Q24H [facility] Azithromycin 500 mg/ Sodium (Chloride) 250 mls @ 250 mls/hr IV ONETIME ONE Stop: 04/22/17 13:05 Last Admin: 04/22/17 12:36 Dose: 250 mls/hr Sodium Chloride (Normal Saline) 1,000 mls @ 999 mls/hr IV ASDIRECTED [facility] Last Infusion: 04/22/17 17:03 Dose: Infused Azithromycin 500 mg/ Sodium (Chloride) 250 mls @ 250 mls/hr IV Q24H [facility] Last Admin: 04/24/17 13:43 Dose: 250 mls/hr Iopamidol (Isovue-370 (76%)) 75 ml IV ONETIME ONE Stop: 04/23/17 09:42 Last Admin: 04/23/17 09:57 Dose: 70 ml Losartan Potassium (Cozaar) 100 mg PO DAILY [facility] [place] Last Admin: 04/22/17 13:13 Dose: 100 mg Methylprednisolone Sodium Succinate (Solu-Medrol) 125 mg IVPUSH Q8H [facility] [place] Last Admin: 04/24/17 04:54 Dose: 125 mg Methylprednisolone Sodium Succinate (Solu-Medrol) 125 mg IVPUSH Q12H [facility] [place] Last Admin: 04/25/17 00:29 Dose: 125 mg Potassium Chloride (Klor-Con M20) 20 meq PO BID [facility] [place] Last Admin: 04/25/17 08:07 Dose: 20 meq *Q Meaningful Use (DIS) - VTE *Q VTE Criteria *Q: - Stroke *Q Stroke Criteria *Q: - AMI *Q AMI Criteria *Q:
[2017-04-26] MEDS: predniSONE 20 MG Tab PO SCH (10:06)
[2017-04-26] MEDS: Potassium Chloride 20 MEQ Tab.ER PO SCH (10:07)
[2017-04-26] MEDS: Venlafaxine 37.5 MG Cap.ER PO SCH (10:07)
[2017-04-26] MEDS: Hydrochlorothiazide/Losartan 12.5-100 mg Tab PO SCH (10:07)
[2017-04-26] MEDS: Aspirin 81 MG Tab.EC PO SCH (10:08)
[2017-04-26] MEDS: Azithromycin 250 MG Tab PO SCH (10:08)
--- NOTE | 2017-04-28 09:43 | PCM.PN ---
- General Info Date of Service: 04/25/17 Admission Dx/Problem (Free Text): Fevers, chills or gone. Oxygen is better although she Vicky O2. Nebulizers are helping. - Patient Data Vitals - Most Recent: Last Vital Signs Temp 97.7 F 04/26/17 12:00 Pulse 102 H 04/26/17 12:00 Resp 16 04/26/17 12:00 BP 140/82 04/26/17 12:00 Pulse Ox 92 L 04/26/17 12:00 Weight - Most Recent: 149 lb 7 oz Med Orders - Current: Current Medications Discontinued Medications Albuterol/Ipratropium (Duoneb 3.0-0.5 Mg/3 Ml) 3 ml NEB ONETIME ONE Stop: 04/22/17 11:06 Last Admin: 04/22/17 11:21 Dose: 3 ml Albuterol/Ipratropium (Duoneb 3.0-0.5 Mg/3 Ml) 3 ml NEB Q2H PRN PRN Reason: Shortness of Breath Last Admin: 04/26/17 08:29 Dose: 3 ml Aspirin (Halfprin) 81 mg PO DAILY [facility] Last Admin: 04/26/17 10:08 Dose: 81 mg Azithromycin (Zithromax) 250 mg PO DAILY [facility] Last Admin: 04/26/17 10:08 Dose: 250 mg Enoxaparin Sodium (Lovenox) 30 mg SUBCUT Q24H [facility] Last Admin: 04/25/17 13:44 Dose: 30 mg HCTZ/Losartan Potassium (Hyzaar 100-12.5 Mg) 1 tab PO DAILY [facility] Last Admin: 04/24/17 08:10 Dose: 1 tab HCTZ/Losartan Potassium (Hyzaar 100-12.5 Mg) 1 tab PO DAILY [facility] Last Admin: 04/26/17 10:07 Dose: 1 tab Sodium Chloride (Normal Saline) 1,000 mls @ 150 mls/hr IV ASDIRECTED [facility] Last Admin: 04/22/17 23:08 Dose: 150 mls/hr Azithromycin 500 mg/ Sodium (Chloride) 250 mls @ 250 mls/hr IV Q24H [facility] Azithromycin 500 mg/ Sodium (Chloride) 250 mls @ 250 mls/hr IV ONETIME ONE Stop: 04/22/17 13:05 Last Admin: 04/22/17 12:36 Dose: 250 mls/hr Sodium Chloride (Normal Saline) 1,000 mls @ 999 mls/hr IV ASDIRECTED [facility] Last Infusion: 04/22/17 17:03 Dose: Infused Azithromycin 500 mg/ Sodium (Chloride) 250 mls @ 250 mls/hr IV Q24H [facility] Last Admin: 04/24/17 13:43 Dose: 250 mls/hr Iopamidol (Isovue-370 (76%)) 75 ml IV ONETIME ONE Stop: 04/23/17 09:42 Last Admin: 04/23/17 09:57 Dose: 70 ml Lorazepam (Ativan) 1 mg PO DAILY PRN PRN Reason: ANXIETY Last Admin: 04/24/17 01:42 Dose: 1 mg Losartan Potassium (Cozaar) 100 mg PO DAILY [facility] Last Admin: 04/22/17 13:13 Dose: 100 mg Melatonin (Melatonin) 9 mg PO BEDTIME PRN PRN Reason: Insomnia Last Admin: 04/23/17 21:15 Dose: 9 mg Methylprednisolone Sodium Succinate (Solu-Medrol) 125 mg IVPUSH Q8H [facility] Last Admin: 04/24/17 04:54 Dose: 125 mg Methylprednisolone Sodium Succinate (Solu-Medrol) 125 mg IVPUSH Q12H [facility] Last Admin: 04/25/17 00:29 Dose: 125 mg Nicotine (Habitrol) 14 mg TRDERM Q24H [facility] Last Admin: 04/25/17 13:48 Dose: 14 mg Potassium Chloride (Klor-Con M20) 20 meq PO BID [facility] Last Admin: 04/25/17 08:07 Dose: 20 meq Potassium Chloride (Klor-Con M20) 20 meq PO TID [facility] Last Admin: 04/26/17 10:07 Dose: 20 meq Prednisone (Prednisone) 60 mg PO DAILY [facility] Last Admin: 04/26/17 10:06 Dose: 60 mg Sodium Chloride (Saline Flush) 10 ml FLUSH ASDIRECTED PRN PRN Reason: Keep Vein Open Last Admin: 04/25/17 07:42 Dose: 10 ml Venlafaxine HCl (Effexor Xr) 37.5 mg PO DAILY [facility] Last Admin: 04/26/17 10:07 Dose: 37.5 mg - Exam General: Alert, Oriented, Cooperative Lungs: Clear to Auscultation, Normal Respiratory Effort Cardiovascular: Regular Rate, Regular Rhythm, No Murmurs - Problem List & Annotations (1) Influenza SNOMED Code(s): 7461640 Code(s): J11.1 - FLU DUE TO UNIDENTIFIED INFLUENZA VIRUS W OTH RESP MANIFEST Status: Acute (2) COPD (chronic obstructive pulmonary disease) SNOMED Code(s): 34184769 Code(s): J44.9 - CHRONIC OBSTRUCTIVE PULMONARY DISEASE, UNSPECIFIED Status : Acute Qualifiers: COPD type: chronic bronchitis (3) Anxiety and depression SNOMED Code(s): 330371661 Code(s): F41.8 - OTHER SPECIFIED ANXIETY DISORDERS Status: Chronic (4) Tobacco abuse SNOMED Code(s): 414680017 Code(s): Z72.0 - TOBACCO USE Status: Chronic (5) Palliative care status SNOMED Code(s): 504441451 Code(s): Z51.5 - ENCOUNTER FOR PALLIATIVE CARE Status: Acute (6) Hypokalemia SNOMED Code(s): 18011597 Code(s): E87.6 - HYPOKALEMIA Status: Acute - Problem List Review Problem List Initiated/Reviewed/Updated: Yes - Plan Plan:: 1. Continue current care. Patient is improving every day and her oxygenation.
== END 2017-04-26 13:10 | disposition home or self-care (01) | DRG 153 ==
LOC: FB.ED 10:36 → FB.MS 11:55 → OBSVTOIN 04-23 09:09
PROVIDERS: ADMIT Family Medicine; ATTEND Family Medicine
DX: J11.1 Influenza due to unidentified influenza virus with other respiratory manifestations (principal); J44.9 Chronic obstructive pulmonary disease, unspecified; F17.210 Nicotine dependence, cigarettes, uncomplicated; E87.3 Alkalosis; E87.2 Acidosis; R53.1 Weakness; R09.02 Hypoxemia; D47.3 Essential (hemorrhagic) thrombocythemia; R06.02 Shortness of breath; R05 Cough; I12.9 Hypertensive chronic kidney disease with stage 1 through stage 4 chronic kidney disease, or unspecified chronic kidney disease; N18.3 Chronic kidney disease, stage 3 (moderate); D72.819 Decreased white blood cell count, unspecified; E87.6 Hypokalemia; F32.9 Major depressive disorder, single episode, unspecified; F41.9 Anxiety disorder, unspecified; H54.7 Unspecified visual loss; Z86.718 Personal history of other venous thrombosis and embolism; Z51.5 Encounter for palliative care; Z79.82 Long term (current) use of aspirin; Z88.1 Allergy status to other antibiotic agents; Z88.0 Allergy status to penicillin; Z88.2 Allergy status to sulfonamides
CPT/HCPCS: 36415; 71046; 71260; 80048; 80053; 83605; 83880; 84484; 85025; 87040; 87804; 94150; 94640; 97161-GP; 99285; A9270-GY; J0456; J1650; J2930; J7040; J7050; J7620; Q9967

== ENCOUNTER → 2022-01-14 | Day surgery (SDC) | payer MEDICARE, BC ==
[~2022-01-14] MED LIST: Propofol 200 MG/20 ML SDV IV ONE; Sodium Chloride 0.9% 10 ML Syringe FLUSH PRN
[2022-01-14] MEDS: Lactated Ringers 1,000 ML IV SCH (08:51)
== END ==
LOC: FB.SDS 07:23
PROVIDERS: ATTEND Surgery
DX: K57.30 Diverticulosis of large intestine without perforation or abscess without bleeding (principal); J44.9 Chronic obstructive pulmonary disease, unspecified; I10 Essential (primary) hypertension; E66.9 Obesity, unspecified; Z86.73 Personal history of transient ischemic attack (TIA), and cerebral infarction without residual deficits; F32.A Depression, unspecified; F41.9 Anxiety disorder, unspecified; R09.89 Other specified symptoms and signs involving the circulatory and respiratory systems; Z87.891 Personal history of nicotine dependence; Z79.899 Other long term (current) drug therapy; Z88.0 Allergy status to penicillin; Z88.2 Allergy status to sulfonamides; Z88.1 Allergy status to other antibiotic agents; Z68.32 Body mass index [BMI] 32.0-32.9, adult
CPT/HCPCS: 00812; 45378; J2704; J7120